=== PATIENT | male | born 1980 | race Caucasian/White ===

== ENCOUNTER 2017-03-21 12:16 | Emergency (ER) | payer OTHER ==
[~2017-03-21] VITALS: Ht 170.2 cm; Wt 68.0 kg
[2017-03-21 12:22] VITALS: BP 127/79
--- NOTE | 2017-03-21 12:40 | NUR ---
Pt placed in bed 8.
--- NOTE | 2017-03-21 12:45 | NUR ---
PATIENT BEING EVALUATED BY DR. MCRAE
--- NOTE | 2017-03-21 13:00 | NUR ---
37/M c/o right ankle pain after a roll of carpet fell onto his foot and patient states he twisted his ankle. Pt unable to ambulate at this time. CMS intact. Discoloration to medial right ankle, purple, green, abrasion noted. Swelling noted. VSS. Pt w/c assisted to bed. Pt unable to ambulate.
--- NOTE | 2017-03-21 13:24 | NUR ---
X-Ray at bedside.
[2017-03-21] MEDS ORDERED: HYDROmorphone 1 MG/ML AMP IVP ONE (13:35)
[2017-03-21] MEDS ORDERED: ONDANSETRON 4 MG/2 ML VIAL IVP ONE (13:35)
--- NOTE | 2017-03-21 14:00 | NUR ---
Patient to be transferred to [facility]. Pt is being transferred due to higher level of care for orthopedic surgery. Receiving facility has accepting physician Dr. Ayala and available space. ER physician has signed transfer form. Patient has agreed to transfer and signed form. Patient belongings inventoried and will be sent with patient. Copy of nursing notes, Physicians Orders and X-rays to be sent with patient. Report called to Baltazar PATTON at receiving facility.
--- NOTE | 2017-03-21 14:33 | NUR ---
[facility] at bedside for transfer. Report given to [facility].
[2017-03-21 14:34] VITALS: BP 133/89
== END 2017-03-21 14:33 | disposition short-term general hospital (02) ==
LOC: MED 12:16
DX: S82.831A Other fracture of upper and lower end of right fibula, initial encounter for closed fracture (principal); S82.391A Other fracture of lower end of right tibia, initial encounter for closed fracture; W18.30XA Fall on same level, unspecified, initial encounter; Y93.89 Activity, other specified; Y92.89 Other specified places as the place of occurrence of the external cause; Y99.8 Other external cause status
CPT/HCPCS: 29515; 73590; 73610; 96374; 96375; 99285; J1170; J2405